=== PATIENT | female | born 2000 | race Caucasian/White ===

== ENCOUNTER 2019-06-30 19:43 | Observation (INO) ==
[2019-06-30] MEDS: 0.9 % Sodium Chloride 1,000 ML IVC SCH ×2 (20:22→21:30)
[2019-06-30 20:39] LABS: White Blood Count 9.4 K/mcL (4.3-11.1)
[2019-06-30 20:40] LABS: Basophils % 0.1 %; Hematocrit 34.4 % (35.3-44.9); Immature Granulocytes % 0.7 % (0-4); Lymphocytes # 0.3 K/mcL (0.6-4.6); Lymphocytes % 3.1 %; Mean Corpuscular Hemoglobin 27.1 pg (28.0-33.3); Mean Corpuscular Volume 84.7 fL (83.0-100.0); Mean Platelet Volume 10.5 fL (9.4-12.4); Monocytes # 0.1 K/mcL (0.0-1.3); Monocytes % 1.4 %; Neutrophils # 8.9 K/mcL (1.6-8.9); Platelet Count 242 K/mcL (140-400); Red Blood Count 4.06 M/mcL (3.82-4.97); Segmented Neutrophils % 94.7 %
[2019-06-30 20:59] LABS: BUN/Creatinine Ratio 18 (6-26); Blood Urea Nitrogen 15 mg/dL (6-20); Calcium 8.8 mg/dL (8.6-10.3); Carbon Dioxide 25 mEq/L (23-29); Chloride 102 mEq/L (98-107); Glucose 103 mg/dL (70-105); Osmolality,Calculated 289 (280-300); Potassium 3.1 mEq/L (3.5-5.1); Sodium 139 mEq/L (136-145); eGFR For African Americans > 60 (> 60); eGFR For Non-African Americans > 60 (> 60)
[2019-06-30] MEDS ORDERED: 0.9 % Sodium Chloride 1,000 ML IVC SCH (22:15)
[2019-06-30] MEDS ORDERED: Ondansetron 4 MG/2 ML VIAL IVP PRN (23:15)
[2019-06-30] MEDS ORDERED: Naloxone 0.4 MG/ML INJ IVP PRN (23:15)
[2019-06-30] MEDS ORDERED: *HR* Promethazine 25 MG/ML VIAL IVP PRN (23:15)
[2019-07-01] MEDS: 0.9 % Sodium Chloride 1,000 ML IVC SCH ×5 (03:16→22:22)
[2019-07-01] MEDS: Acetaminophen 325 MG TABLET PO PRN ×4 (03:32→22:23)
[2019-07-01] MEDS ORDERED: 0.9 % Sodium Chloride 1,000 ML IVC ONE (04:04)
[2019-07-01 06:53] LABS: BUN/Creatinine Ratio 19 (6-26); Blood Urea Nitrogen 13 mg/dL (6-20); Calcium 7.7 mg/dL (8.6-10.3); Carbon Dioxide 22 mEq/L (23-29); Chloride 107 mEq/L (98-107); Glucose 140 mg/dL (70-105); Osmolality,Calculated 288 (280-300); Potassium 3.8 mEq/L (3.5-5.1); Sodium 138 mEq/L (136-145); eGFR For African Americans > 60 (> 60); eGFR For Non-African Americans > 60 (> 60)
[2019-07-01 11:09] LABS: Hematocrit 30.5 % (35.3-44.9); Hemoglobin 9.8 g/dL (11.5-15.4); Mean Corpuscular HGB Conc 32.1 g/dL (31.6-35.5); Mean Corpuscular Hemoglobin 27.1 pg (28.0-33.3); Mean Corpuscular Volume 84.3 fL (83.0-100.0); Mean Platelet Volume 11.4 fL (9.4-12.4); Platelet Count 207 K/mcL (140-400); Red Blood Count 3.62 M/mcL (3.82-4.97); Red Cell Distribution Width 13.2 % (11.5-14.5); White Blood Count 7.2 K/mcL (4.3-11.1)
[2019-07-02] MEDS: 0.9 % Sodium Chloride 1,000 ML IVC SCH ×2 (03:25→08:41)
[2019-07-02] MEDS: Acetaminophen 325 MG TABLET PO PRN (08:41)
[2019-07-02 10:08] LABS: Hematocrit 29.5 % (35.3-44.9); Hemoglobin 9.2 g/dL (11.5-15.4); Mean Corpuscular HGB Conc 31.2 g/dL (31.6-35.5); Mean Corpuscular Hemoglobin 26.6 pg (28.0-33.3); Mean Corpuscular Volume 85.3 fL (83.0-100.0); Mean Platelet Volume 10.8 fL (9.4-12.4); Platelet Count 162 K/mcL (140-400); Red Blood Count 3.46 M/mcL (3.82-4.97); Red Cell Distribution Width 13.6 % (11.5-14.5)
[2019-07-02 10:20] LABS: BUN/Creatinine Ratio 9 (6-26); Blood Urea Nitrogen 5 mg/dL (6-20); Calcium 7.9 mg/dL (8.6-10.3); Carbon Dioxide 27 mEq/L (23-29); Chloride 110 mEq/L (98-107); Glucose 112 mg/dL (70-105); Osmolality,Calculated 288 (280-300); Potassium 3.5 mEq/L (3.5-5.1); Sodium 140 mEq/L (136-145); eGFR For African Americans > 60 (> 60); eGFR For Non-African Americans > 60 (> 60)
[2019-07-02 11:05] VITALS: BP 115/75
== END 2019-07-02 13:56 | disposition home or self-care (01) ==
LOC: EMEROOPIK 19:43 → INPPIK 19:43
PROVIDERS: ADMIT Family Medicine; ATTEND Family Medicine